=== PATIENT | male | born 1950 | race American Indian/Alaskan Native ===

== ENCOUNTER 2016-04-29 08:26 | Outpatient (CLI) | payer BC ==
--- NOTE | 2016-04-29 11:23 | Ultrasound Report ---
ULTRASOUND RENAL BILATERAL HISTORY: Flank pain. TECHNIQUE: transabdominal ultrasound with color Doppler interrogation. FINDINGS: Scans of the kidneys show normal renal contours. There is normal central calyceal clustering and good preservation of the cortical thickness. There is no evidence of mass or hydronephrosis. The views of the bladder and the region of the ureters appear normal. IMPRESSION: Unremarkable renal ultrasound.
== END 2016-04-29 08:27 | disposition home or self-care (01) ==
LOC: US 08:26
PROVIDERS: ATTEND Urology
DX: R10.9 Unspecified abdominal pain (principal)
CPT/HCPCS: 76770

== ENCOUNTER 2016-11-29 10:27 | Outpatient (CLI) | payer BC ==
--- NOTE | 2016-11-29 12:31 | Cat Scan Report ---
CT abdomen and pelvis without contrast: Flank pain. Transverse images are obtained from lower chest to the ischium with coronal and sagittal 2-D reformatted images. The visualized lung bases are clear. Scattered calcifications are present throughout the liver and spleen consistent with granulomatous infection. The abdominal organs are generally unremarkable as are the solid retroperitoneal organs. The proximal and mid abdominal aorta is normal in size and contour. The distal aorta however is involved with a contiguous lobulated and inhomogeneous mass which is contiguous with the aorta. It measures approximately 3.9 cm in size that would include the aorta. The aortic bifurcation lies just below this mass. No other obvious adenopathy is identified but this evaluation is also limited by the lack of IV contrast. Sections through the pelvis demonstrate an prominent prostate gland indenting the bladder base. No lytic or blastic bone lesions noted. Degenerative changes are present at the articular margin between L5 and S1. Impressions: Distal abdominal aorta or periaortic mass. Recommendation: Repeat scan with IV and oral contrast for better evaluation.
== END 2016-11-29 10:28 | disposition home or self-care (01) ==
LOC: CT 10:27
PROVIDERS: ATTEND Urology
DX: K76.89 Other specified diseases of liver (principal); D73.89 Other diseases of spleen; M47.897 Other spondylosis, lumbosacral region
CPT/HCPCS: 74176

== ENCOUNTER 2016-12-11 05:37 | Inpatient (IN) | payer BC ==
--- NOTE | 2016-12-10 09:57 | Anesthesia Consultation ---
Anesthesia Consult and Med Hx Date of service: 12/10/16 - Airway Anesthetic Teeth Evaluation: Partials (upper and lower) ROM Head & Neck: Adequate Mental/Hyoid Distance: Adequate Mallampati Class: Class II Intubation Access Assessment: Probably Good - Pre-Operative Health Status ASA Pre-Surgery Classification: ASA3 Proposed Anesthetic Plan: General - Pulmonary Hx Smoking: Yes (former, quit 30 years ago) - Cardiovascular System Hx Peripheral Vascular Disease: Yes (AAA) - Central Nervous System Hx Psychiatric Problems: No - Endocrine Hx Renal Disease: Yes (BPH, h/o kidney stones) - Other Systems Hx Cancer: No
[2016-12-10 11:57] LABS: Basophils % (Auto) 1.3 % (0.0-1.8); Eosinophils % (Auto) 7.3 % (0.0-4.3); Hematocrit 38.6 % (35.5-45.6); Hemoglobin 12.9 gm/dl (11.8-15.2); Mean Corpuscular HGB Conc 34 % (32-34); Mean Corpuscular Hemoglobin 30 pg (28-32); Mean Corpuscular Volume 90 fl (84-94); Platelet Count 206 K/mm3 (140-440); Red Blood Count 4.29 M/mm3 (3.65-5.03); Red Cell Distribution Width 13.9 % (13.2-15.2); White Blood Count 4.3 K/mm3 (4.5-11.0)
[2016-12-10 12:00] LABS: Anion Gap 14 mmol/L; BUN/Creatinine Ratio 18.75; Blood Urea Nitrogen 15 mg/dL (9-20); Calcium 9.1 mg/dL (8.4-10.2); Carbon Dioxide 27 mmol/L (22-30); Chloride 102.7 mmol/L (98-107); Glucose 135 mg/dL (75-100); Potassium 3.7 mmol/L (3.6-5.0); Sodium 140 mmol/L (137-145)
[2016-12-11] MEDS ORDERED: NACL 0.9% 1000 ML 1,000 ML IV SCH ×2 (06:00→16:25)
[2016-12-11] MEDS ORDERED: ANCEF/STERILE WATER 2 GM/20 ML 2 GM/20 ML SYRINGE IV NR (06:00)
[2016-12-11] MEDS ORDERED: NACL BACTERIOSTATIC INFILTRATI ONE (06:34)
[2016-12-11] MEDS ORDERED: VERSED IV NR (07:00)
[2016-12-11] MEDS ORDERED: PEPCID IV NR (07:00)
[2016-12-11] MEDS ORDERED: ZEMURON IV ONE (07:25)
[2016-12-11] MEDS ORDERED: XYLOCAINE MPF 2% ONE (07:25)
[2016-12-11] MEDS ORDERED: SUBLIMAZE ONE (07:26)
[2016-12-11] MEDS ORDERED: HEPARIN 10,000 UNITS/10 ML ONE (07:26)
[2016-12-11] MEDS ORDERED: MARCAINE-EPI/PF 0.5%-1:200,000 INFILTRATI ONE (07:27)
[2016-12-11] MEDS ORDERED: DIPRIVAN 10 MG/ML IV ONE ×2 (07:27→09:26)
--- NOTE | 2016-12-11 07:37 | Anesthesia Day of Surgery ---
Anesthesia Day of Surgery - Day of Surgery Patient Examined: Yes Patient H&P Reviewed: Yes Patient is NPO: Yes
[2016-12-11] MEDS ORDERED: NACL 0.9% 250ML 250 ML ONE (07:39)
[2016-12-11] MEDS ORDERED: VERSED ONE (08:21)
[2016-12-11] MEDS ORDERED: MARCAINE 0.5% 30 ML INFILTRATI ONE (08:34)
[2016-12-11] MEDS ORDERED: HEPARIN 10,000 UNITS/10 ML 4,000 UNIT in NACL 0.9% 1000 ML 1,000 ML IR ONE (08:45)
[2016-12-11] MEDS ORDERED: OMNIPAQUE IR ONE (08:45)
[2016-12-11] MEDS ORDERED: NACL 0.9% IR ONE ×2 (08:45)
[2016-12-11] MEDS ORDERED: OMNIPAQUE (300 MG) 100 ML in NACL 0.9% 50 ML IR ONE (08:45)
[2016-12-11] MEDS ORDERED: MARCAINE 0.5% INFILTRATI ONE ×2 (08:45)
[2016-12-11] MEDS ORDERED: ZOFRAN IV PRN ×2 (09:00→10:24)
[2016-12-11] MEDS ORDERED: ZOFRAN ONE (09:49)
--- NOTE | 2016-12-11 10:14 | Operative Report ---
Operative Report Operative Report: Date of procedure: 12/11/2016 Pre-operative diagnosis: Saccular abdominal aortic aneurysm Post-operative diagnosis: Same Procedure name(s): #1 Percutaneous endovascular abdominal and iliac artery aneurysms repair with Endurant endograft main body any 3 x 13 x 1 24 through the ipsilateral left side , contralateral limb excision 16 x 10 x 93 ipsilateral limb right. #2 introduction of catheters and wires into the aorta bilaterally. #3 aortic angiogram with radiologic supervision and closure. #4 ultrasound assisted introduction of the needle into the common femoral arteries bilaterally. #5 percutaneous closure using Perclose device bilaterally. Surgeon: Roberto Garcia MD, RPVI Cheesemaker: ALVARADO Nieves Anesthesia: Gen. Findings #1 saccular abdominal aortic aneurysm #2 patent bilateral renal arteries post deployment #3 patent bilateral hypogastric arteries post deployment #4 complete exclusion of the aneurysms after the placing of the endograft with no evidence of endoleak. #5 excellent hemostatic closure. #6 both feet were warm with [pulse]at the end of the case and the same as preop Specimens: None EBL: 40 mL IV fluids: 1800 mL Urine output: 300 ml Disposition: The recovery Indications: Large saccular abdominal aortic aneurysm. Procedure Patient was brought to the operating room and laid on the table in supine position. Spinal anesthesia was successfully administered. The abdomen and the groins were prepped and draped in usual sterile fashion. Under ultrasonic guidance the left common femoral artery was accessed using an a micropuncture needle. A micropuncture wire was advanced into the iliac artery. The introducer was placed the wire was exchanged to a Bentson wire. The tract was dilated using a 6 Hungarian sheath. The Perclose device was placed with sutures toward the middle. They were anchored to the skin using Steri-Strips. Another Perclose device was placed with sutures laterally. They were also secured with a Steri-Strips. The 8 Hungarian sheath was placed over the wire. The angled catheter was placed over the wire into the thoracic aorta. The wire was exchanged to a stiff Lunderquist wire. Under ultrasound guidance the right common femoral artery was accessed in the same fashion. 2 Perclose devices was placed in the same way. The 8 Hungarian sheath was placed in the right common femoral artery over the wire. The pigtail catheter was advanced to the level of L2. The main body device was placed over the wire from the left side with the end of the fabric at about L1. The angiogram was performed and the renal arteries were marked on the screen. Patient was given 5000 units of intravenous heparin. The main body was positioned with the contralateral gate positioned anatomically]. It was deployed infrarenally until the gate opened. The suprarenal stent was released. The pigtail was brought down below the gate. The cannulation of the gate was performed using the pigtail catheter and a Glidewire. The catheter spun around freely inside the graft. It was advanced into the thoracic aorta. The Lunderquist wire was placed through the pigtail. The pigtail was brought down to the level of the iliac artery. The angiogram through the right side was performed and the hypogastric artery was marked. The contralateral limb was advanced until adequate overlap with the gate was achieved. It was deployed in usual fashion. The retrograde angiogram from the [right] was performed. The proximal and distal attachment sites were ballooned using the Reliant balloon as well as the overlap sites. Postprocedure angiogram revealed patent bilateral renal arteries, patent bilateral hypogastric arteries no evidence of endoleak. The sheaths were backed out over the wire and bilateral hemostasis was achieved by cinching down Perclose devices. Hemostasis was excellent and no bleeding was seen. The feet were examined there were warm to touch the same as preop. Bilateral dorsalis pedis pulses in the left posterior tibial post was patent as preop. Patient tolerated procedure well and was transferred to recovery room in stable condition. At the end of the case all instrument, sponge, needle counts were correct
[2016-12-11] MEDS ORDERED: NARCAN 0.4 MG/1 ML IV PRN (10:24)
[2016-12-11] MEDS: DILAUDID IV PRN ×4 (10:50→11:20)
[2016-12-11] MEDS ORDERED: ANCEF/NS 1 GM/50 ML 1 GM/50 ML BAG IV SCH (11:00)
[2016-12-11] MEDS ORDERED: NORCO 5/325 PO PRN (11:00)
[2016-12-11] MEDS: NORCO 5/325 PO PRN ×2 (12:10→22:14)
--- NOTE | 2016-12-11 12:44 | Post Anesthesia Evaluation ---
- Post Anesthesia Evaluation Patient Participated: Yes Airway Patent: Yes Stable Respiratory Function: Yes Nausea/Vomiting: No Temp > 96.8F: Yes Pain Manageable: Yes Adequeate Hydration: Yes Anesthesia Complications: No Block Receding Appropriately: Yes Patient on Ventilator: No
[2016-12-11] MEDS ORDERED: NACL 0.9% 1000 ML 1,000 ML ONE (12:46)
[2016-12-11] MEDS: MORPHINE IV PRN ×4 (13:56→19:54)
[2016-12-11] MEDS: ANCEF/NS 1 GM/50 ML 1 GM/50 ML BAG IV SCH ×2 (15:40→23:12)
[2016-12-12] MEDS: MORPHINE IV PRN ×2 (00:06→05:43)
[2016-12-12 04:36] LABS: Hematocrit 34.2 % (35.5-45.6); Hemoglobin 11.3 gm/dl (11.8-15.2)
[2016-12-12 04:57] LABS: Anion Gap 15 mmol/L; Blood Urea Nitrogen 10 mg/dL (9-20); Calcium 8.4 mg/dL (8.4-10.2); Carbon Dioxide 26 mmol/L (22-30); Chloride 100.4 mmol/L (98-107); Glucose 108 mg/dL (75-100); Potassium 3.8 mmol/L (3.6-5.0); Sodium 138 mmol/L (137-145)
[2016-12-12] MEDS: NORCO 5/325 PO PRN (08:39)
--- NOTE | 2016-12-12 09:27 | Progress Note ---
Assessment and Plan Ok for d/c today. Will ambulate with assistance before discharge. He should continue Xarelto as previously instructed. f/u in two weeks with Radha. Subjective Date of service: 12/12/16 Interval history: POD 1 s/p EVAR. c/o mild back and abdominal pain. Otherwise, no acute events. Has been OOB to chair. He's had something to drink, and scant solid PO intake. Objective - Constitutional Vitals: Vital Signs - 12hr 12/11/16 12/11/16 12/12/16 22:00 23:00 00:00 Temperature 99.4 F Pulse Rate 77 74 68 Respiratory 22 21 19 Rate Blood Pressure 118/71 111/68 121/72 O2 Sat by Pulse 100 98 100 Oximetry 12/12/16 12/12/16 12/12/16 01:00 02:00 03:00 Temperature Pulse Rate 70 69 67 Respiratory 20 20 20 Rate Blood Pressure 114/65 114/65 113/64 O2 Sat by Pulse 100 99 100 Oximetry 12/12/16 12/12/16 12/12/16 04:00 05:00 06:00 Temperature 98.1 F Pulse Rate 77 69 71 Respiratory 16 19 20 Rate Blood Pressure 117/45 118/61 115/66 O2 Sat by Pulse 100 100 99 Oximetry 12/12/16 12/12/16 12/12/16 07:00 07:55 08:00 Temperature 98.6 F Pulse Rate 69 66 Respiratory 18 18 Rate Blood Pressure 114/68 114/68 O2 Sat by Pulse 100 99 Oximetry 12/12/16 08:42 Temperature Pulse Rate Respiratory 18 Rate Blood Pressure O2 Sat by Pulse 97 Oximetry General appearance: Present: no acute distress, well-nourished - EENT Eyes: PERRL, EOM intact ENT: hearing intact, clear oral mucosa - Neck Neck: supple, normal ROM - Respiratory Respiratory effort: normal Extremities: pulses intact, No edema, normal color, Full ROM - Integumentary Integumentary: clear, warm, dry (bilateral groin wounds well healed.) - Labs CBC & Chem 7: 12/12/16 04:11 12/12/16 04:11 Labs: Abnormal lab results 12/11/16 12/12/16 12/12/16 Range/Units 09:23 04:11 04:11 Hgb 11.3 L (11.8-15.2) gm/dl Hct 34.2 L (35.5-45.6) % Activated Clotting Time 164 H (74-137) Glucose 108 H (75-100) mg/dL
--- NOTE | 2016-12-12 09:32 | Discharge Summary ---
Providers - Providers Date of Admission: 12/11/16 05:37 Date of discharge: 12/12/16 Attending physician: ROBERTO GARCIA 12/11/16 10:24 Consult to Physician [CONS] Routine Consulting Provider: JADON BRAR Reason For Exam: ICU admission Place consult to:: Notified:: yes Phone number called:: Was contact made?: Yes If yes, spoke with:: Text Time called:: 17:40 Primary care physician: BETSY GERARDO Hospitalization Reason for admission: AAA Condition: Good Procedures: Date of procedure: 12/11/2016 Pre-operative diagnosis: Saccular abdominal aortic aneurysm Post-operative diagnosis: Same Procedure name(s): #1 Percutaneous endovascular abdominal and iliac artery aneurysms repair with Endurant endograft main body any 3 x 13 x 1 24 through the ipsilateral left side , contralateral limb excision 16 x 10 x 93 ipsilateral limb right. #2 introduction of catheters and wires into the aorta bilaterally. #3 aortic angiogram with radiologic supervision and closure. #4 ultrasound assisted introduction of the needle into the common femoral arteries bilaterally. #5 percutaneous closure using Perclose device bilaterally. Surgeon: Roberto Garcia MD, RPVI Professor Of Practice: ALVARADO Nieves Anesthesia: Gen. Findings #1 saccular abdominal aortic aneurysm #2 patent bilateral renal arteries post deployment #3 patent bilateral hypogastric arteries post deployment #4 complete exclusion of the aneurysms after the placing of the endograft with no evidence of endoleak. #5 excellent hemostatic closure. #6 both feet were warm with [pulse]at the end of the case and the same as preop Specimens: None EBL: 40 mL IV fluids: 1800 mL Urine output: 300 ml Disposition: The recovery Indications: Large saccular abdominal aortic aneurysm. Hospital course: Patient was admitted pre-operatively and underwent EVAR. The procedure went smoothly and he did very well afterwards. Disposition: - TO HOME OR SELFCARE - Discharge Diagnoses (1) Abdominal aortic aneurysm (AAA) Status: Resolved Qualifiers: Presence of rupture: ruptured Qualified Code(s): I71.3 - Abdominal aortic aneurysm, ruptured Core Measure Documentation - Palliative Care Palliative Care/ Comfort Measures: Not Applicable - Core Measures Any of the following diagnoses?: none Exam - Constitutional Vitals: Temp Pulse Resp BP Pulse Ox 98.6 F 66 18 114/68 97 12/12/16 07:55 12/12/16 08:00 12/12/16 08:42 12/12/16 08:00 12/12/16 08:42 General appearance: Present: no acute distress, well-nourished - EENT Eyes: Present: PERRL ENT: hearing intact, clear oral mucosa - Neck Neck: Present: supple, normal ROM - Respiratory Respiratory effort: normal - Extremities Extremities: pulses symmetrical, No edema - Abdominal General gastrointestinal: Present: soft, non-tender - Integumentary Integumentary: Present: clear, warm, dry - Musculoskeletal Musculoskeletal: gait normal, strength equal bilaterally - Psychiatric Psychiatric: appropriate mood/affect, intact judgment & insight - Neurologic Neurologic: CNII-XII intact, moves all extremities Plan Activity: advance as tolerated (avoid heavy lifting >20lbs for one week) Weight Bearing Status: Weight Bear as Tolerated Diet: low cholesterol Wound: open to air, keep clean and dry Follow up with: BETSY GERARDO MD [Primary Care Provider] - 7 Days ROBERTO GARCIA MD [Staff Physician] - 14 Days Prescriptions: HYDROcodone/APAP 5-325 [[place] 5-325 mg TAB] 1 each PO Q6H PRN #14 tablet PRN Reason: Pain, Moderate (4-6)
[2016-12-12] MEDS ORDERED: XARELTO PO SCH (10:00)
[2016-12-12] MEDS ORDERED: LOVENOX SUB-Q SCH (10:00)
[2016-12-12] MEDS: FLOMAX PO SCH ×2 (10:08→10:12)
[2016-12-12 11:31] VITALS: BP 101/61
== END 2016-12-12 11:33 | disposition home or self-care (01) | DRG 269 ==
LOC: 3A 05:37 → EDBD 08:00 → CC1 11:38
PROVIDERS: ADMIT Surgery Vascular Surgery; ATTEND Surgery Vascular Surgery
PROC: 04V03DZ Restriction of Abdominal Aorta with Intraluminal Device, Percutaneous Approach (ICD-10-PCS; principal; 2016-12-11)
PROC: B4101ZZ Fluoroscopy of Abdominal Aorta using Low Osmolar Contrast (ICD-10-PCS; 2016-12-11)
DX: I71.4 Abdominal aortic aneurysm, without rupture (principal); I80.292 Phlebitis and thrombophlebitis of other deep vessels of left lower extremity; I87.2 Venous insufficiency (chronic) (peripheral); Z91.040 Latex allergy status
CPT/HCPCS: 36415; 36620; 75952; 80048; 85014; 85018; 85025; 85347; 86850; 86900; 86901; 94760; C1760; C1768; C1769; C1887; C1894; J0690; J1170; J1644; J2250; J2270; J2405; J2704; J3010; J3246; J7030; J7050; Q9966

== ENCOUNTER 2017-09-03 11:47 | Outpatient (CLI) | payer BC, MEDICARE ==
[2017-09-03 12:27] LABS: Blood Urea Nitrogen 9 mg/dL (9-20)
--- NOTE | 2017-09-03 13:47 | Cat Scan Report ---
FINAL REPORT EXAM: CT ANGIO ABD/FEMORAL ABD AORTA HISTORY: AORTIC ANEURYSM WITHOUT RUPTURE TECHNIQUE: CT angiography of the abdomen and pelvis performed. CT angiogram runoff of the lower extremities performed. IV contrast was administered. Axial images and coronal and sagittal reformatted images were obtained. PRIORS: None. FINDINGS: The visualized aspects of the lung bases are clear. The visualized liver, spleen, pancreas, adrenal glands and kidneys demonstrate no significant abnormalities. There is prominent stool throughout the colon. Correlate for constipation. There is no evidence of intestinal obstruction. The appendix is normal. There is no free intraperitoneal air. The bladder is unremarkable. There is an aortoiliac stent graft present. This extends from above renal arteries to distal common iliac arteries. There is no aneurysm seen. There is no aortic leak seen. The celiac trunk/axis, SMA, and renal arteries are patent. There are no abnormal fluid collections seen. Lower extremity runoff performed. There is normal blood flow to lower extremity arteries. This is seen from groin to feet bilaterally. No arterial thrombus seen. IMPRESSION: Aortoiliac stent graft present. No aneurysm. No intravascular filling defects seen. Normal arterial patency in the lower extremities.
== END 2017-09-03 11:48 | disposition home or self-care (01) ==
LOC: CT 11:47
PROVIDERS: ATTEND Radiology Diagnostic Radiology
DX: I71.4 Abdominal aortic aneurysm, without rupture (principal); I80.292 Phlebitis and thrombophlebitis of other deep vessels of left lower extremity; I87.2 Venous insufficiency (chronic) (peripheral); Z95.1 Presence of aortocoronary bypass graft; Z87.891 Personal history of nicotine dependence
CPT/HCPCS: 36415; 75635; 82565; 84520; Q9967